=== PATIENT | male | born 1980 | race Caucasian/White ===

== ENCOUNTER 2020-02-20 10:22 | Outpatient (CLI) | payer BC, SELFPAY ==
--- NOTE | 2020-02-20 10:39 | RAD ---
XR Forearm Lt 2 View STANDARD History: Kicked by a horse Comparison: None. Findings: Forearm is intact. No acute displaced fracture. Impression: Intact forearm.
--- NOTE | 2020-02-20 10:39 | RAD ---
XR Elbow Lt 4 View STANDARD History: Kicked by horse Comparison: None. Findings: No acute fracture or malalignment. No significant elbow joint effusion. Impression: No acute osseous abnormality. Mild lateral soft tissue swelling above the elbow.
== END 2020-02-20 10:23 | disposition home or self-care (01) ==
LOC: MADRAD 10:22
PROVIDERS: ATTEND Family Medicine
DX: S59.912A Unspecified injury of left forearm, initial encounter (principal); M79.89 Other specified soft tissue disorders